=== PATIENT | female | born 1980 | race Caucasian/White ===

== ENCOUNTER 2020-12-04 12:06 | Outpatient (CLI) | payer OTHER, MEDICARE ==
[~2020-12-04 12:06] MED LIST: ARIP10TA8 PO; LAMO100T2 PO; OMEP-50 PO
== END 2020-12-04 23:59 | disposition home or self-care (01) ==
LOC: LAB 12:06
PROVIDERS: ATTEND Internal Medicine
DX: R79.1 Abnormal coagulation profile (principal)
CPT/HCPCS: 36415; 85610

== ENCOUNTER 2024-03-20 19:47 | Emergency (ER) | payer BC, MEDICARE ==
[~2024-03-20] VITALS: Ht 167.6 cm; Wt 77.3 kg
[~2024-03-20 19:47] MED LIST changes: +ARIP10TA14 PO; -ARIP10TA8 PO; -OMEP-50 PO; +OMEP20CA16 PO
[2024-03-20 21:53] VITALS: BP 136/88; PULSE 78; RESP 18; TEMP 98; O2SAT 98
== END 2024-03-20 21:54 | disposition home or self-care (01) ==
LOC: ER 19:48
DX: S61.011A Laceration without foreign body of right thumb without damage to nail, initial encounter (principal); G89.29 Other chronic pain; M54.9 Dorsalgia, unspecified; Z88.6 Allergy status to analgesic agent; Z79.899 Other long term (current) drug therapy; W45.8XXA Other foreign body or object entering through skin, initial encounter; Y93.89 Activity, other specified; Y92.89 Other specified places as the place of occurrence of the external cause; Y99.8 Other external cause status
CPT/HCPCS: 12001; 99282; A6449

== ENCOUNTER 2025-01-20 11:11 | Emergency (ER) | payer BC, MEDICARE ==
[~2025-01-20] VITALS: Ht 167.6 cm; Wt 70.5 kg
[2025-01-20 11:15] VITALS: TEMP 98
[2025-01-20] MEDS ORDERED: ketorolac trometh 30MG/ML vial 30 MG/ML VIAL IM STA (14:42)
--- NOTE | 2025-01-20 14:54 | ELECTROCARDIOGRAPH REPORT ---
[facility] Test Date: 2025-01-20 Test Time: 14:53:05 Pat Name: RACHEAL QUIROGA Department: [facility]- Patient ID: [id number] Room: Gender: F [employer]: : 1980 Requested By: JACKSON MERRILL Order Number: [id number] Reading MD: Measurements Intervals [place] Rate: 72 P: 0 MS: 195 QRS: 58 QRSD: 106 T: 58 QT: 403 QTc: 442 Interpretive Statements Sinus rhythm Low voltage, precordial leads Baseline wander in lead(s) V6 Please click the below link to view image of tracing.
[2025-01-20 15:08] LABS: MEAN PLATELET VOLUME 8.0 FL (7.4-10.4); RED CELL DISTRIBUTION WIDTH 13.1 % (11.5-14.5)
[2025-01-20] MEDS: polyethylene glycol 3350 17gm powd pack PO STA (15:08)
[2025-01-20] MEDS: mag hydrox/Alum hydrox/simeth 30ml oral suspension PO STA (15:09)
[2025-01-20] MEDS: acetaminophen 1,000mg/100ml IV 100 ML IV STA (15:10)
[2025-01-20] MEDS: ketorolac trometh 30MG/ML vial 30 MG/ML VIAL IV STA (15:18)
[2025-01-20 15:20] LABS: CREATININE 0.77 MG/DL (0.40-0.90); TOTAL CARBON DIOXIDE 27.9 MMOL/L (24-32); eCRCL 88 ML/MIN; eGFR 82 ML/MIN
[2025-01-20 15:25] VITALS: BP 98/62; PULSE 70; RESP 13; O2SAT 100
[2025-01-20 15:31] LABS: BASOPHILS % (MANUAL) 1.0 % (0-1); EOSINOPHILS % (MANUAL) 2.0 % (0-6); LYMPHOCYTES % (MANUAL) 33.0 % (21-51); MONOCYTES % (MANUAL) 9.0 % (2-12); NEUTROPHILS % (MANUAL) 55.0 % (42-75); PLATELET ESTIMATE DECREASED
[2025-01-20] MEDS ORDERED: iohexol 300mg/ml 100ml inj. ONE (15:47)
[2025-01-20 16:10] LABS: LEUKOCYTE ESTERASE ,URINE NEGATIVE (Neg); NITRITES, URINE NEGATIVE (Neg); OCCULT BLOOD,URINE NEGATIVE (Neg)
[2025-01-20 16:13] LABS: UA COLLECTION TYPE CLN CATCH MIDSTREAM
[2025-01-20 16:17] LABS: SQUAMOUS EPITHELIAL CELL,UR MODERATE /LPF (FEW)
[2025-01-20 16:21] LABS: URINE HCG NEGATIVE (NEG)
--- NOTE | 2025-01-20 17:10 | RADIOLOGY REPORT ---
Indication: ABD PAIN Technique: CT axial images of the abdomen and pelvis are obtained with intravenous contrast. Coronal and sagittal reformats were obtained. Radiation Dose Information: CTDI volume is 14.3 mGy. Dose-length product is 748 mGy*cm Comparison: None FINDINGS: Lung bases demonstrate no pleural effusion. Bilateral atelectasis. The adrenal glands are unremarkable. Spleen measures 14 cm pancreas unremarkable. 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 No CT evidence for cholelithiasis. No enhancing hepatic lesion. The kidneys demonstrate no hydronephrosis. Left renal AML measuring 8 mm. Postsurgical changes stomach. Small bowel loops normal in caliber. Postsurgical changes sigmoid colon . Moderate volume stool within the colon no secondary signs for appendicitis. Abdominal aorta normal in caliber. Bladder partially distended. Small amount of free pelvic fluid. I ntrauterine device. Soft tissue edema / anasarca. Iggl-iq-actdvete bilateral sacroiliac degenerative joint disease. Mild thoracolumbar degenerative dis c disease. 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 Splenomegaly. Postsurgical changes sigmoid colon. Moderate volume stool in the colon. Soft tissue edema / anasarca. Small amount of free pelvic fluid. Intrauterine device. Other findings as described.
--- NOTE | 2025-01-20 18:05 | Physician Documentation ---
History of Present Illness ~ Chief Complaint: Abdominal Pain Stated Complaint: POSS HERNIA IN BOWEL Time Seen by MD: 14:30 HPI Patient is seen today with complaints of lower abdominal pain. Patient states she had partial colectomy about a year ago by a surgeon in [place] and she has had issues with vacillating between diarrhea and constipation. Patient states she has not had a bowel movement in three days. Patient also states she did have an ultrasound done at [facility] that was ordered by her primary care that showed an abdominal hernia and her primary care for dinner referral for her to see Dr. White which is why patient came into the ER today because Dr. White is on-call here today. Patient denies any urinary issues and she has no other concern or complaint at this time. She denies any fevers or chills for nausea, vomiting, diarrhea. She denies any regular opiate use and states she does have pain when having a bowel movement. Patient states recently last week she did have to disimpact herself digitally at home. Patient denies any regular use of senna or MiraLax. Medication Reconciliation Allergies: Coded Allergies: ibuprofen (Verified Allergy, Unknown, 01/20/25) GASTRIC BYPASS Scheduled Aripiprazole (Abilify), 1 TAB PO DAILY, (Reported) Lamotrigine* (Lamictal*), 1 TAB PO DAILY, (Reported) Omeprazole (Omeprazole), 1 CAP PO DAILY, (Reported) Past Medical History Past Medical History: Chronic Back Pain Past Surgical History: no surgical history Smoking Status: Never smoker Review of Systems Constitutional: Denies: chills, fever, weakness Eyes: Denies: pain, blurred vision ENT: Denies: ear pain, nose pain, throat pain, mouth pain Respiratory: Denies: cough, shortness of breath Cardiovascular: Denies: chest pain, palpitations Gastrointestinal: Denies: abdominal pain, nausea, vomiting Genitourinary: Denies: burning, dysuria Female Genitalia: Denies: vaginal discharge, pelvic pain Neurological: Denies: headache, dizziness Musculoskeletal: Denies: pain, swelling Integumentary: Denies: rash, lesions Allergic/Immunologic: Denies: hives, itching Hematologic/Lymphatic: Denies: no symptoms reported Psychiatric: Denies: depression, anxiety Physical Exam Vital Signs: Temperature: 98.0, Source: Temporal, Heart Rate: 70, Respiratory Rate: 13, BP: 98/62, Pulse Oximetry: 100, Weight: 70.450 Oxygen Flow Rate: 0 Physical Exam General: Awake and Alert, no acute distress. HEENT: Conjunctiva pink, Sclera clear, Mucus Membranes moist. Neck: Supple without masses and tenderness. Resp: Unlabored. Lungs clear to auscultation bilaterally. Heart: Regular Rate and rhythm, normal S1 and S2 without murmur, rub or gallop. Abdomen: On exam the patient does have tenderness to palpation of the lower abdomen without any rebound tenderness and without guarding. Abdomen is nondistended, no masses appreciable on palpation, normoactive bowel sounds. I do not appreciate any abdominal or ventral hernia on exam. Extremities: No cyanosis,clubbing or edema. Skin: Warm and Dry. Progress Results/Orders Results/Orders Orders - JACKSON MERRILL PAC Saline Lock (01/20/25 ) Ct Abdomen Pelvis (01/20/25 16:30) Hs Troponin I W Calculations (01/20/25 16:37) Completed Orders - JACKSON MERRILL R PAC Cbc/Diff (01/20/25 14:37) Lipase (01/20/25 14:37) MG (01/20/25 14:37) Hcg, Ur Ql (01/20/25 14:37) Electrocardiogram (01/20/25 14:37) Ct Abdomen Pelvis (01/20/25 16:30) BMP (01/20/25 14:37) Hs Troponin I W Calculations (01/20/25 14:37) Polyethylene Glycol 3350 Pkt (Miralax Pa (01/20/25 14:42) Acetaminophen 1,000mg/100ml Iv (Ofirmev (01/20/25 14:42) Mag & Alum Hydrox/Simeth Susp (Maalox Or (01/20/25 14:42) Sennosides/Docusate Sodium Tab (Senna-S (01/20/25 14:42) Man Diff (01/20/25 14:57) Ketorolac Trometh 30mg/Ml Vial (Toradol (01/20/25 15:13) Iohexol 300mg/Ml 100ml Inj. (Omnipaque-3 (01/20/25 15:47) Ua W/Microscopic, Cult If Ind (01/20/25 15:49) Medications Received in ER Medications (Trade) Dose Ordered Sig/Zion Route PRN Reason Start Time Stop Time Status Last Admin Dose Admin (Miralax packet) 17 gm ONCE STAT PO 01/20/25 14:42 01/20/25 14:47 DC 01/20/25 15:08 17 GM (Senna-S tablet) 2 tab ONCE STAT PO 01/20/25 14:42 01/20/25 14:48 DC 01/20/25 15:10 2 TAB Acetaminophen 100 ml @ 400 mls/hr ONCE STAT IV 01/20/25 14:42 01/20/25 14:56 DC 01/20/25 15:10 400 MLS/HR (Maalox oral suspension) 30 ml ONCE STAT PO 01/20/25 14:42 01/20/25 14:47 DC 01/20/25 15:09 30 ML (Toradol inj. 30mg/ml) 30 mg ONCE STAT IV 01/20/25 15:13 01/20/25 15:14 DC 01/20/25 15:18 30 MG Vital Signs 01/20/25 01/20/25 01/20/25 01/20/25 11:15 11:39 12:23 15:18 Temp 98.0 Pulse 80 76 70 Resp 18 16 14 14 B/P (MAP) 145/107 100/60 (73) 100/57 (71) Pulse Ox 97 98 98 O2 Flow Rate 0 01/20/25 15:25 Pulse 70 Resp 13 B/P (MAP) 98/62 (74) Pulse Ox 100 Laboratory Tests Test 01/20/25 14:57 01/20/25 15:49 01/20/25 17:18 White Blood Count 2.2 L Red Blood Count 3.57 L Hemoglobin 11.3 L Hematocrit 32.6 L Mean Corpuscular Volume 91.3 Mean Corpuscular Hemoglobin 31.6 H Mean Corpuscular Hemoglobin Concent 34.6 Red Cell Distribution Width 13.1 Platelet Count 113 L Mean Platelet Volume 8.0 Neutrophils (%) (Auto) 53.4 Lymphocytes (%) (Auto) 36.1 Monocytes (%) (Auto) 8.4 Eosinophils (%) (Auto) 1.4 Basophils (%) (Auto) 0.7 Neutrophils # (Auto) 1.2 L Lymphocytes # (Auto) 0.8 L Monocytes # (Auto) 0.2 Eosinophils # (Auto) 0.0 Basophils # (Auto) 0.0 CBC Comment Differential Total Cells Counted 100 Neutrophils % (Manual) 55.0 Lymphocytes % (Manual) 33.0 Monocytes % (Manual) 9.0 Eosinophils % (Manual) 2.0 Basophils % (Manual) 1.0 Platelet Estimate Decreased Red Blood Cell Morphology Normal Basophilic Stippling Sodium Level 142 Potassium Level 3.9 Chloride Level 109 H Carbon Dioxide Level 27.9 Anion Gap 5 L Blood Urea Nitrogen 11 Creatinine 0.77 Estimated GFR/1.73 m2 82 BUN/Creatinine Ratio 14.3 Glucose Level 85 Calcium Level 8.0 L Magnesium Level 2.1 Troponin I High Sensitivity 4 Albumin 3.4 Lipase 40 Chemistry Comments Urine Specimen Description Cln catch midstream Urine Color Straw Urine Clarity Slightly cloudy Urine pH 8.0 Urine Specific [place] 1.015 Urine Protein Negative Urine Glucose (UA) Negative Urine Ketones Negative Urine Occult Blood Negative Urine Nitrite Negative Urine Bilirubin Negative Urine Urobilinogen 0.2 Urine Leukocyte Esterase Negative Urine RBC None seen Urine WBC 0-4 Urine Squamous Epithelial Cells Moderate Urine Bacteria 2+ Urine Culture Indicated Not ind Volume Urine Centrifuged 10 ml Urine HCG, Qualitative Negative Urine Comment Medical Decision Making Findings Patient is seen today with complaints of lower abdominal pain. Patient states she had partial colectomy about a year ago by a surgeon in [place] and she has had issues with vacillating between diarrhea and constipation. Patient states she has not had a bowel movement in three days. Patient also states she did have an ultrasound done at [facility] that was ordered by her primary care that showed an abdominal hernia and her primary care for dinner referral for her to see Dr. White which is why patient came into the ER today because Dr. White is on-call here today. Patient denies any urinary issues and she has no other concern or complaint at this time. She denies any fevers or chills for nausea, vomiting, diarrhea. She denies any regular opiate use and states she does have pain when having a bowel movement. Patient states recently last week she did have to disimpact herself digitally at home. Patient denies any regular use of senna or MiraLax. Patient's labs are largely benign with mild anemia as well as low white blood cell count. Urinalysis shows no sign of infection. I was able to consult Dr. White and Dr. White went through the CT scan with myself and they determined the patient's abdominal pain likely is from her constipation and large amount of fecal matter in her distal colon. Dr. White determined patient to not to be a surgical candidate and did not require surgical consultation. I strongly advised patient follow up with her surgeon in [place] for further eval and treatment and possible colonoscopy. Patient was treated with senna and MiraLax in the ED today. Patient will continue senna and MiraLax as prescribed and will add enema as well as fecal disimpaction manually as needed. Patient will return to ED in 1-2 days if she is still does not have a bowel movement or sooner as needed. Return to ED with any worsening, concerning or changing symptoms. Departure Disposition: HOME / SELF CARE / HOMELESS Impression: Primary Impression: Abdominal pain Qualified Codes: R10.30 - Lower abdominal pain, unspecified Additional Impressions: Anemia Qualified Codes: D64.9 - Anemia, unspecified Constipation Qualified Codes: K59.00 - Constipation, unspecified Condition: Stable Discharge Instructions: Constipation, Adult, Jlif-nl-Iths Additional Instructions: Patient's labs are largely benign with mild anemia as well as low white blood cell count. Urinalysis shows no sign of infection. I was able to consult Dr. White and Dr. White went through the CT scan with myself and they determined the patient's abdominal pain likely is from her constipation and large amount of fecal matter in her distal colon. Dr. White determined patient to not to be a surgical candidate and did not require surgical consultation. I strongly advised patient follow up with her surgeon in [place] for further eval and treatment and possible colonoscopy. Patient was treated with senna and MiraLax in the ED today. Patient will continue senna and MiraLax as prescribed and will add enema as well as fecal disimpaction manually as needed. Patient will return to ED in 1-2 days if she is still does not have a bowel movement or sooner as needed. Return to ED with any worsening, concerning or changing symptoms. Referrals: NO PRIMARY CARE PROVIDER (PCP) Prescriptions Na Phos,M-B/Na Phos,Di-Ba (Enema Fbsrj-Fq-Lyl) 19 Gram-7 Gram/118 Ml Enema 118 ML RC DAILY for 3 Days, #354 ML 0 Refills DIRECTED Prov: JACKSON MERRILL PAC 01/20/25 Polyethylene Glycol 3350 (Miralax) 17 Gram/Dose Powder 17 GM PO BID for constipation, #527 GM 0 Refills dissolve in water Prov: JACKSON MERRILL 01/20/25 Sennosides/Docusate Sodium (Senna-Docusate Sodium Tablet) 8.6 Mg-50 Mg Tablet 2-3 TAB PO Q8H for constipation for 10 Days, #90 TAB 0 Refills Prov: JACKSON MERRILL 01/20/25 Signature Scribe Signature: No scribe Attestation: No scribe JACKSON MERRILL Jan 20, 2025 18:05
[2025-01-20] MEDS ORDERED: POLY119P2 PO (18:10)
[2025-01-20] MEDS ORDERED: SENN-36 PO (18:10)
[2025-01-20] MEDS ORDERED: NA P133E37 RC (18:11)
== END 2025-01-20 18:23 | disposition home or self-care (01) ==
LOC: ER 11:12
DX: R10.30 Lower abdominal pain, unspecified (principal); K59.00 Constipation, unspecified; D64.9 Anemia, unspecified; Z88.6 Allergy status to analgesic agent; Z79.899 Other long term (current) drug therapy
CPT/HCPCS: 36415; 74177; 80048; 81001; 81025; 83690; 83735; 84484; 85007; 85025; 93005; 96374; 96375; 99285; J0131; J1885; Q9967